=== PATIENT | male | born 1960 | race Caucasian/White ===

== ENCOUNTER 2016-09-16 21:48 | Emergency (ER) | payer SELFPAY | END 2016-09-17 01:15 | disposition home or self-care (01) | LOC: D.ER 21:48 | DX: S61.211A Laceration without foreign body of left index finger without damage to nail, initial encounter (principal); S61.213A Laceration without foreign body of left middle finger without damage to nail, initial encounter; S61.215A Laceration without foreign body of left ring finger without damage to nail, initial encounter; W45.8XXA Other foreign body or object entering through skin, initial encounter; Y93.89 Activity, other specified; Y92.89 Other specified places as the place of occurrence of the external cause ==

== ENCOUNTER 2017-06-05 12:58 | Emergency (ER) | payer OTHER | END 2017-06-05 15:00 | disposition left against medical advice (07) | LOC: D.ER 12:58 | DX: T21.24XA Burn of second degree of lower back, initial encounter (principal); T31.0 Burns involving less than 10% of body surface; X08.8XXA Exposure to other specified smoke, fire and flames, initial encounter; Y93.89 Activity, other specified; Y92.019 Unspecified place in single-family (private) house as the place of occurrence of the external cause ==

== ENCOUNTER 2019-10-20 12:14 | Emergency (ER) | payer SELFPAY ==
[~2019-10-20] VITALS: Ht 175.3 cm; Wt 74.5 kg
[2019-10-20 12:21] VITALS: Ht 175.3 cm; Wt 74.5 kg
[2019-10-20 12:57] LABS: BILIRUBIN NEGATIVE (NEGATIVE); GLUCOSE NEGATIVE (NEGATIVE); KETONE NEGATIVE (NEGATIVE); NITRITE POSITIVE (NEGATIVE)
[2019-10-20 12:58] LABS: BACTERIA MANY /hpf (NEGATIVE); EPITHELIAL CELLS RARE /hpf (0-5); WHITE CELLS - URINE 25-50 /hpf (NEGATIVE)
[2019-10-20 13:24] LABS: BASOPHILS 0.1 % (0-2); EOSINOPHILS 0.5 % (0-7); HEMATOCRIT 44.4 % (42.0-54.0); HEMOGLOBIN 14.3 g/dL (13.5-17.5); IMMATURE GRANULOCYTES 0.2 % (0-5); LYMPHOCYTES 8.8 % (15-50); MCH 32.1 pg (26.0-34.0); MCHC 32.2 g/dL (31.0-37.0); MCV 99.6 fL (80.0-100.0); MEAN PLATELET VOLUME 9.4 fL (7.4-10.4); MONOCYTES 8.3 % (2-11); NEUTROPHILS 82.1 % (40-80); PLATELET COUNT 221 10x3/uL (130-400); RBC 4.46 10x6/uL (4.20-6.10); RDW 13.5 % (11.5-14.5); WBC 12.2 10x3/uL (4.8-10.8)
[2019-10-20 13:34] LABS: CALC OSMOLALITY 273 mosm/kg (275-300); CALCIUM 9.2 mg/dL (8.5-10.1); CARBON DIOXIDE 30.1 mmol/L (21.0-32.0); CHLORIDE - SERUM 98 mmol/L (98-107); GLUCOSE 106 mg/dL (74-106); POTASSIUM - SERUM 4.6 mmol/L (3.5-5.1); SODIUM 137 mmol/L (136-145); UREA NITROGEN 12 mg/dL (7-18); eGFR NON AFRICAN AMERICAN 81 mL/min (90-120)
[2019-10-20 13:40] LABS: ALBUMIN 3.9 g/dL (3.4-5.0); ALKALINE PHOSPHATASE 81 U/L (30-120); ALT (SGPT) 30 U/L (10-68); BILIRUBIN - TOTAL 0.74 mg/dL (0.2-1.3); PROTEIN - SERUM 7.9 g/dL (6.4-8.2)
[2019-10-20] MEDS ORDERED: CIPRO500 MG PO (15:31)
[2019-10-20] MEDS ORDERED: PHENAZOPYRIDIN200 MG PO (15:31)
[2019-10-20 15:48] VITALS: BP 132/76
[2019-10-21 09:37] VITALS: Ht 175.3 cm; Wt 74.5 kg
[2019-10-21] MEDS ORDERED: AZO STANDARD95 MG PO (10:09)
[2019-10-21] MEDS ORDERED: ACETAMINOPHEN500 M1 PO (10:10)
== END 2019-10-20 15:49 | disposition home or self-care (01) ==
LOC: D.ER 12:14
PROVIDERS: Family Medicine
DX: N39.0 Urinary tract infection, site not specified (principal); N30.91 Cystitis, unspecified with hematuria

== ENCOUNTER 2019-10-21 06:05 | Inpatient (IN) | payer MEDICAID ==
[~2019-10-21] VITALS: Ht 175.3 cm; Wt 79.1 kg
[~2019-10-21 06:05] MED LIST: CIPRO500 MG PO; PHENAZOPYRIDIN200 MG PO
--- NOTE | 2019-10-21 06:31 | NUR ---
BLOOD AND URINE SPECIMANS SENT TO LAB
[2019-10-21 06:39] LABS: BASOPHILS 0.2 % (0-2); EOSINOPHILS 0.5 % (0-7); HEMATOCRIT 39.4 % (42.0-54.0); IMMATURE GRANULOCYTES 0.2 % (0-5); LYMPHOCYTES 4.6 % (15-50); MCH 32.2 pg (26.0-34.0); MCV 97.5 fL (80.0-100.0); MEAN PLATELET VOLUME 9.2 fL (7.4-10.4); MONOCYTES 1.4 % (2-11); NEUTROPHILS 93.1 % (40-80); PLATELET COUNT 182 10x3/uL (130-400); RBC 4.04 10x6/uL (4.20-6.10); RDW 13.3 % (11.5-14.5); WBC 6.3 10x3/uL (4.8-10.8)
[2019-10-21 06:47] LABS: BACTERIA FEW /hpf (NEGATIVE); RED CELLS - URINE OCC /hpf (0-5)
[2019-10-21 07:04] LABS: ANION GAP 14.1 mmol/L (8-16); CALCIUM 8.6 mg/dL (8.5-10.1); CREATININE - SERUM 1.1 mg/dL (0.6-1.3); POTASSIUM - SERUM 4.1 mmol/L (3.5-5.1)
[2019-10-21 07:06] LABS: ALBUMIN 3.3 g/dL (3.4-5.0); BILIRUBIN - TOTAL 0.64 mg/dL (0.2-1.3); PROTEIN - SERUM 7.1 g/dL (6.4-8.2)
--- NOTE | 2019-10-21 07:36 | NUR ---
LATIC ACID 2.8 MD AWARE.
[2019-10-21 08:30] VITALS: BP 95/53
--- NOTE | 2019-10-21 08:39 | NUR ---
0830 ATTEMPTED TO CALL REPORT, UNSUCESSFUL, NURSE TO CALL BACK.
[2019-10-21 09:37] VITALS: BP 91/49; Ht 175.3 cm; Wt 79.1 kg
[2019-10-21] MEDS ORDERED: AZO STANDARD95 MG PO (10:09)
[2019-10-21] MEDS ORDERED: ACETAMINOPHEN500 M1 PO (10:10)
--- NOTE | 2019-10-21 10:36 | NUR ---
PT WAS ABLE TO UNDERSTAND THISNURSE MED REC AND HX COMPLETED. PT NIS ALERT AND ORIENTED AND UP ADLIB. RN TO COMPLETE ADMISSION ASSESSMENT.
[2019-10-21 11:29] VITALS: BP 91/53
[2019-10-21 15:56] VITALS: BP 103/66
--- NOTE | 2019-10-21 18:16 | NUR ---
PT'S SIGNIFICANT OTHER CALLED DESK AND STATES SHE THINKS PT IS RUNNING A TEMP BECAUSE HE SAID HE HAS CHILLS I STATE WE WILL CHECK HIS TEMP. CHECKED TEMP AND IT IS 99.4.
[2019-10-21 20:00] VITALS: BP 104/66
[2019-10-22] VITALS: BP 104/57
[2019-10-22 04:00] VITALS: BP 113/72
[2019-10-22 04:49] LABS: BASOPHILS 0.1 % (0-2); EOSINOPHILS 0.6 % (0-7); HEMATOCRIT 34.6 % (42.0-54.0); IMMATURE GRANULOCYTES 0.5 % (0-5); LYMPHOCYTES 12.6 % (15-50); MCH 31.4 pg (26.0-34.0); MCHC 31.8 g/dL (31.0-37.0); MCV 98.9 fL (80.0-100.0); MEAN PLATELET VOLUME 9.7 fL (7.4-10.4); MONOCYTES 9.3 % (2-11); NEUTROPHILS 76.9 % (40-80); PLATELET COUNT 192 10x3/uL (130-400); RDW 13.5 % (11.5-14.5)
[2019-10-22 04:52] LABS: WBC 9.8 10x3/uL (4.8-10.8)
[2019-10-22 05:14] LABS: ALBUMIN 2.7 g/dL (3.4-5.0); ALKALINE PHOSPHATASE 77 U/L (30-120); ALT (SGPT) 63 U/L (10-68); BILIRUBIN - TOTAL 0.24 mg/dL (0.2-1.3); CALC OSMOLALITY 271 mosm/kg (275-300); CARBON DIOXIDE 28.4 mmol/L (21.0-32.0); CHLORIDE - SERUM 103 mmol/L (98-107); GLUCOSE 113 mg/dL (74-106); POTASSIUM - SERUM 3.9 mmol/L (3.5-5.1); SODIUM 136 mmol/L (136-145); UREA NITROGEN 10 mg/dL (7-18); eGFR NON AFRICAN AMERICAN 81 mL/min (90-120)
--- NOTE | 2019-10-22 05:24 | NUR ---
PTS TEMPERATURE IS 103. PT REPORTS FEELING HOT. HE HAS 3 BLANKETS ON HIM AND THE HEAT IS ON. TURNED THE HEAT OFF AND TOOK THE BLANKETS OFF HIM. GAVE HIM TYLENOL. HE DENIES PAIN OR NEEDS. HIS BED IS LOW AND CALL LIGHT IS WITHIN REACH.
--- NOTE | 2019-10-22 06:39 | NUR ---
RECHECKED PTS TEMPERATURE AFTER GIVING TYLENOL, REMOVING ALL THE BLANKETS AND TURNING THE HEAT OFF AND IT IS NOW 101.
--- NOTE | 2019-10-22 08:47 | NUR ---
RECEIVED PT. REPORTED TO BE ALERT AND ORIENTED. UP ADLIB. PT HAS A LEFT HAND IV WITH NS @ 125 AND A RIGHT AC THIS IS SALINE LOCKED. PT IS ELECTROLYTE PROTOCOL AND HAS TELMETRY. IN CONTACT ISOLATION FOR E. COLI IN URINE. PT IS RESTING COMFORTABLY IN BED WITH EYES CLOSED. BREATHING EVEN AND UNLABORED NO S/S OF DISTRESS AT THIS TIME. BED IN LOWEST POSITION, BED RAILS X2, CALL LIGHT WITHIN REACH. WILL CONTINUE TO MONITOR.
--- NOTE | 2019-10-22 09:09 | NUR ---
ADMINISTERED MEDICATION AT THIS TIME, HUNG IV MEDICATION, TOLERATING WELL. RESTING COMFORTABLY IN BED. DENIES ANY NEEDS AT THIS TIME. WILL CONTINUE TO MONITOR.
--- NOTE | 2019-10-22 10:20 | NUR ---
ADMINISTERED IV MEDICATION AT THIS TIME AND ARMANIN, NO DIFFICULTY. RESTING COMFORTABLY IN BED AT THIS TIME, SPEAKING ON TELEPHONE. DENIES ANY NEEDS. WILL CONTINUE TO MONITOR.
--- NOTE | 2019-10-22 10:56 | NUR ---
I have reviewed this patient and I concur with the Shift Assessment completed by the Licensed Practical Nurse today this shift.
[2019-10-22 11:09] VITALS: BP 105/61
--- NOTE | 2019-10-22 12:42 | NUR ---
STARTED PT IV NORMAL SALINE BOLUS AT THIS TIME. PT IS RESTING COMFORTABLY IN BED, AIDE IN ROOM AQUIRING VITALS. DENIES ANY NEEDS. WILL CONTINUE TO MONITOR.
--- NOTE | 2019-10-22 12:51 | NUR ---
ADMINISTERED PRN TYLENOL FOR LOW GRADE FEVER. NO DIFFICULTY. DENIES ANY NEEDS. WILL CONTINUE TO MONITOR.
[2019-10-22 13:55] VITALS: BP 111/66
--- NOTE | 2019-10-22 14:54 | NUR ---
DC PT IV TO FROM THE RIGHT AC DUE TO PATIENT COMPLAINT OF PAIN. CATHETER TIP INTACT, COVERED SITE WITH A 2X2, TOLERATED WELL. SPOKE WITH PATIENT SPOUSE, ANSWERED QUESTIONS AND PROVIDED PT WITH COFFEE AND SUGAR PER REQUEST. RESTING IN BED, DENIES ANY NEEDS AT THIS TIME. WILL CONTINUE TO MONITOR.
--- NOTE | 2019-10-22 15:18 | NUR ---
ADMINISTERED MEDICATION. PROVIDED PT WITH SUPPLIES TO SHAVE. DENIES ANY OTHER NEEDS AT THIS TIME. GAVE REPORT ON PATIENT TO PABLO GRUBER LPN.
[2019-10-22 18:31] VITALS: BP 101/62
--- NOTE | 2019-10-22 19:05 | NUR ---
REPORT RECEIVED, WILL CONTINUE POC. PATIENT IS AAOX4 LYING IN SEMI-FOWLERS POSITION. NO S/S OF DISTRESS OBSERVED, RR EVEN AND UNLABORED ON ROOM AIR. PIV TO LT HAND INFUSING NS @ 125ML/HR. PATIENT DENIES NEEDS AT THIS TIME. CL IN REACH, BED LOCKED AND LOWERED. CONTACT PRECAUTIONS MAINTAINED. WILL CTM.
[2019-10-22 20:00] VITALS: BP 119/70
--- NOTE | 2019-10-22 20:37 | NUR ---
PATIENT CALLED, PASSCODE VERIFIED, UPDATE GIVEN.
--- NOTE | 2019-10-23 02:44 | NUR ---
I have reviewed this patient and I concur with the Shift Assessment completed by the Licensed Practical Nurse today this shift.
[2019-10-23 04:00] VITALS: BP 126/76
[2019-10-23 04:22] LABS: BASOPHILS 0.2 % (0-2); EOSINOPHILS 1.9 % (0-7); HEMATOCRIT 32.6 % (42.0-54.0); HEMOGLOBIN 10.4 g/dL (13.5-17.5); MCH 31.7 pg (26.0-34.0); MCHC 31.9 g/dL (31.0-37.0); MCV 99.4 fL (80.0-100.0); MEAN PLATELET VOLUME 9.8 fL (7.4-10.4); MONOCYTES 13.6 % (2-11); NEUTROPHILS 63.3 % (40-80); PLATELET COUNT 206 10x3/uL (130-400); RBC 3.28 10x6/uL (4.20-6.10); RDW 13.6 % (11.5-14.5)
[2019-10-23 04:49] LABS: WBC 6.3 10x3/uL (4.8-10.8)
[2019-10-23 04:58] LABS: ALBUMIN 2.5 g/dL (3.4-5.0); ALKALINE PHOSPHATASE 71 U/L (30-120); BILIRUBIN - TOTAL 0.17 mg/dL (0.2-1.3); CALC OSMOLALITY 277 mosm/kg (275-300); CALCIUM 8.5 mg/dL (8.5-10.1); CARBON DIOXIDE 31.5 mmol/L (21.0-32.0); CHLORIDE - SERUM 105 mmol/L (98-107); CREATININE - SERUM 0.8 mg/dL (0.6-1.3); GLUCOSE 108 mg/dL (74-106); POTASSIUM - SERUM 4.4 mmol/L (3.5-5.1); PROTEIN - SERUM 5.9 g/dL (6.4-8.2); SODIUM 139 mmol/L (136-145); UREA NITROGEN 9 mg/dL (7-18); eGFR NON AFRICAN AMERICAN > 90 mL/min (90-120)
[2019-10-23 04:59] LABS: ALT (SGPT) 45 U/L (10-68)
[2019-10-23 09:14] VITALS: BP 125/55
--- NOTE | 2019-10-23 11:15 | MORECARE ---
CASE MANAGEMENT DISCHARGE SUMMARY PATIENT: YASMEEN VENEGAS UNIT: [id number] ADM DATE: 10/21/19 AGE: 59 : 60 SEX: M ROOM/BED: D.2104 AUTHOR: JONY MCGEE PHYSICIAN: REFERRING PHYSICIAN: FAYE WELLINGTON MD DATE OF SERVICE: 10/23/19 Discharge Plan Patient Name: YASMEEN VENEGAS Facility: [facility]:[place] : 1960 Planned Disposition: Home Anticipated Discharge Date: Discharge Date: Expected LOS: Initial Reviewer: [email or web address] Initial Review Date: 10/23/2019 Generated: 10/23/19 12:15 pm Patient Name: YASMEEN VENEGAS Page 39401 at 1115 All edits/amendments must be made on the electronic document DICTATION DATE: 10/23/19 1115 LITIGATION COORDINATOR: GILMAR 10/23/19 1115 RPT#: [id number] DC DATE: STATUS: ADM IN [facility] [address] [place] [address] END OF REPORT
--- NOTE | 2019-10-23 11:22 | MORECARE ---
CASE MANAGEMENT DISCHARGE SUMMARY PATIENT: YASMEEN VENEGAS UNIT: [id number] ADM DATE: 10/21/19 AGE: 59 : 60 SEX: M ROOM/BED: D.2104 AUTHOR: EVERARDODOC PHYSICIAN: REFERRING PHYSICIAN: FAYE WELLINGTON MD DATE OF SERVICE: 10/23/19 Discharge Plan Patient Name: YASMEEN VENEGAS Facility: [facility]:[place] : 1960 Planned Disposition: Home Anticipated Discharge Date: Discharge Date: Expected LOS: Initial Reviewer: [email or web address] Initial Review Date: 10/23/2019 Generated: 10/23/19 12:22 pm Comments DCP- Discharge Planning Updated by [email or web address]: Jaci Julian on 10/23/19 10:[address] Patient Name: YASMEEN VENEGAS Admission Status: ER Accout number: [id number] Admission Date: 10-21-2019 : 1960 Admission Diagnosis:FEVER, UNSPECIFIED Attending: FYAE WELLINGTON Current LOS: 2 Anticipated DC Date: Planned Disposition: Home Primary Insurance: MEDICAID [place] PENDING Discharge Planning Comments: CM called patient in the room to discuss discharge planning/needs per Isolation protocol. He states he lives with his armaan?e and is independent with all his care. He has no DME. States he does have a PCP, unsure of the name. Cathy Seals is listed on face sheet. I asked him if he would be able to afford his prescriptions at discharge and he states yes. He could benefit from a Good RX card, which I will provide. CM will continue to follow and assist with discharge planning/needs. Group Director Experience: Jaci Julian DCPIA - Discharge Planning Initial Assessment Updated by [email or web address]: Jaci Julian on 10/23/19 11:15 am * Is the patient Alert and Oriented? Yes * How many steps to enter\exit or inside your home? 0/0 * PCP Unknown ?Cathy Seals is listed on face sheet * Pharmacy [facility] * Preadmission Environment Home with Family * ADLs Independent * Equipment None * List name and contact numbers for known caregivers / representatives who currently or will assist patient after discharge: Deannageorge crook?e - [phone] or [phone] * Verbal permission to speak to the caregivers and representatives has been obtained from the patient. Yes * Community resources currently utilized None * Additional services required to return to the preadmission environment? No * Can the patient safely return to the preadmission environment? Yes * Has this patient been hospitalized within the prior 30 days at any hospital? No Last DP export: 10/23/19 10:15 am Patient Name: YASMEEN VENEGAS Page 46103 at 1122 All edits/amendments must be made on the electronic document DICTATION DATE: 10/23/191121 POLY OPERATOR: GILMAR 10/23/191121 RPT#: [id number] DC DATE: STATUS: ADM IN [facility] [address] [place] [address] END OF REPORT
[2019-10-23] MEDS ORDERED: FLOMAX0.4 MG PO (11:51)
[2019-10-23] MEDS ORDERED: PROSCAR5 MG PO (11:51)
[2019-10-23] MEDS ORDERED: Nicoderm [PBKC] TRANSDERM (11:51)
[2019-10-23] MEDS ORDERED: FLORAJEN3 CAPS460 MG PO (11:51)
[2019-10-23] MEDS ORDERED: DOXYCYCLINE HY100 M2 PO (11:52)
[2019-10-23 12:18] VITALS: BP 126/61
--- NOTE | 2019-10-23 14:14 | NUR ---
DISCHARGE INSTRUCTIONS AND GOOD RX GIVEN TO PT. ALL QUESTIONS ANSWERED. CHART COPY SIGNED. TELEMTERY DC'D AND GIVEN TO DOG CONTROL OFFICER. LEFT HAND 20G IV DC'D WITH CATH INTACT. PT TAKEN OUT VIA WC WITH ALL BELONGINGS AND LEFT WITH FRIEND IN PERSONAL VEHICLE.
--- NOTE | 2019-10-25 19:33 | MORECARE ---
CASE MANAGEMENT DISCHARGE SUMMARY PATIENT: YASMEEN VENEGAS UNIT: [id number] ADM DATE: 10/21/19 AGE: 59 : 60 SEX: M ROOM/BED: D.2104 AUTHOR: JONY MCGEE PHYSICIAN: REFERRING PHYSICIAN: FAYE WELLINGTON MD DATE OF SERVICE: 10/25/19 Discharge Plan Patient Name: YASMEEN VENEGAS Facility: [facility]:[place] : 1960 Planned Disposition: Home Anticipated Discharge Date: Discharge Date: 10/23/2019 Expected LOS: Initial Reviewer: [email or web address] Initial Review Date: 10/23/2019 Generated: 10/25/19 8:32 pm Comments DCP- Discharge Planning Updated by [email or web address]: Jaci Juilan on 10/23/19 10:[address] Patient Name: YASMEEN VENEGAS Admission Status: ER Accout number: [id number] Admission Date: 10-21-2019 : 1960 Admission Diagnosis:FEVER, UNSPECIFIED Attending: FAYE WELLINGTON Current LOS: 2 Anticipated DC Date: Planned Disposition: Home Primary Insurance: MEDICAID [place] PENDING Discharge Planning Comments: CM called patient in the room to discuss discharge planning/needs per Isolation protocol. He states he lives with his finase and is independent with all his care. He has no DME. States he does have a PCP, unsure of the name. Cathy Seals is listed on face sheet. I asked him if he would be able to afford his prescriptions at discharge and he states yes. He could benefit from a Good RX card, which I will provide. CM will continue to follow and assist with discharge planning/needs. Sr. Vendor Management Associate: Jaci Julian DCPIA - Discharge Planning Initial Assessment Updated by [email or web address]: Jaci Julian on 10/23/19 11:15 am * Is the patient Alert and Oriented? Yes * How many steps to enter\exit or inside your home? 0/0 * PCP Unknown ?Cathy Arnel is listed on face sheet * Pharmacy [facility] * Preadmission Environment Home with Family * ADLs Independent * Equipment None * List name and contact numbers for known caregivers / representatives who currently or will assist patient after discharge: Deanna crook?e - [phone] or [phone] * Verbal permission to speak to the caregivers and representatives has been obtained from the patient. Yes * Community resources currently utilized None * Additional services required to return to the preadmission environment? No * Can the patient safely return to the preadmission environment? Yes * Has this patient been hospitalized within the prior 30 days at any hospital? No Last DP export: 10/23/19 10:22 am Patient Name: YASMEEN VENEGAS Page [id number] at 1933 All edits/amendments must be made on the electronic document DICTATION DATE: 10/25/191932 BANANA ROOM CUTTER: GILMAR 10/25/191932 RPT#: [id number] DC DATE:10/23/19 STATUS: DIS IN [facility] [address] [place] [address] END OF REPORT
== END 2019-10-23 14:17 | disposition home or self-care (01) | DRG 872 ==
LOC: D.ER 06:05 → D.M2 08:12
PROVIDERS: Family Medicine; ADMIT Family Medicine; ATTEND Family Medicine
DX: A41.9 Sepsis, unspecified organism (principal); N10 Acute pyelonephritis; N41.0 Acute prostatitis; E87.1 Hypo-osmolality and hyponatremia; E87.2 Acidosis; E86.0 Dehydration; D72.810 Lymphocytopenia; D64.9 Anemia, unspecified